=== PATIENT | female | born 1970 | race Hispanic/Latino ===

== ENCOUNTER → 2020-01-31 | Outpatient (CLI) | payer OTHER ==
--- NOTE | 2020-01-31 16:05 | Diagnostic Imaging Report ---
EXAMINATION: MRI Abdomen without contrast/MRCP. TECHNIQUE: Axial T1 nonfat sat in and out of phase, axial T2 fat sat, coronal T2 with and without fat sat, axial DWI and ADC MR images of the abdomen were obtained. No intravenous gadolinium was given. Heavily T2-weighted MRCP images were also performed, including thick and thin slab MRCP ASSETT and 3-D reconstructions. CLINICAL HISTORY:Dyspepsia, GERD, fatty liver nonalcoholic, right upper quadrant abdominal pain COMPARISON: None. FINDINGS: LACK OF GADOLINIUM DECREASES SENSITIVITY FOR DETECTION OF INTRA-ABDOMINAL PATHOLOGY. LOWER THORAX: Unremarkable. LIVER: Normal hepatic size and contour.. There is signal dropout of the hepatic parenchyma on out of phase images (calculated hepatic fat fraction 15.4%, calculated hepatic fat percentage 13.4%). No focal T2 hyperintense lesions in the visualized portions of the liver. BILIARY: No intra or extrahepatic biliary ductal dilation. Low insertion of the cystic duct. The common bile duct is normal in caliber and measures approximately 5 mm at the williams hepatis and 3.7 mm at the pancreatic head. Normal luminal contour and normal tapering to the ampulla. No intraluminal filling defects, strictures or extrinsic compressions.. Gallbladder is not visualized. Magnetic susceptibility artifact in the gallbladder fossa likely from cholecystectomy clips.. PANCREAS: No mass or ductal dilatation. Normal pancreatic duct course SPLEEN: No splenomegaly. ADRENALS: No nodules. KIDNEYS: No hydronephrosis or evidence of obstruction. 7 mm round T2 hyperintense lesion in the posterior interpolar left kidney (series 9, image 9), likely represents a small cyst.. PERITONEUM / RETROPERITONEUM: No upper abdominal free fluid. GI TRACT: The visualized portions of the bowel show no dilation or obstruction. LYMPH NODES: No upper abdominal lymphadenopathy. VESSELS: Normal flow voids are identified.. . . BONES AND SOFT TISSUES: No abnormal bone marrow signal. No soft tissue abnormalities. IMPRESSION: 1. Mild to moderate hepatic steatosis. 2. Status post cholecystectomy. No intra or extrahepatic biliary ductal dilation or evidence of choledocholithiasis. Signed by: Dr. Ant Monk M.D. on 01/31/2020 4:02 PM
== END ==
LOC: MRI 13:31
PROVIDERS: ATTEND Internal Medicine Gastroenterology
DX: K30 Functional dyspepsia (principal); R10.11 Right upper quadrant pain; K21.9 Gastro-esophageal reflux disease without esophagitis; K76.0 Fatty (change of) liver, not elsewhere classified; E66.3 Overweight; Z71.3 Dietary counseling and surveillance
CPT/HCPCS: 74181